=== PATIENT | female | born 1995 | race Caucasian/White ===

== ENCOUNTER 2017-07-17 22:56 | Emergency (ER) | payer SELFPAY ==
--- NOTE | ~2017-07-17 | ER ---
PATIENT'S NAME: CATHY MILLER [facility] AGE: 22 Y [address] ROOM: [place] [address] LOCATION: ED ADMIT DATE: 07/17/2017 ER/Outpatient Report DISCHARGE DATE: 07/17/2017 FAMILY PHYSICIAN: PHYSICIAN, NO ATTENDING PHYSICIAN: Kemar Rico Time of Arrival: 2258 hours. Time of Exam: 2303 hours. CHIEF COMPLAINT: Headache. HISTORY OF PRESENT ILLNESS: The patient states she has a headache behind her eyes and her posterior scalp area. This is similar to headaches that she has had in the past. The headache began 24 hours ago, has not improved with rest. She has been nauseated, has not vomited. Has had some photophobia. ALLERGIES: SHE HAS NO KNOWN ALLERGIES. CURRENT MEDICATIONS: No current medications. PAST MEDICAL HISTORY: Migraine headaches. PAST SURGICAL HISTORY: Appendectomy. SOCIAL HISTORY: She smokes 3/4 of a pack per day. Denies use of drugs and alcohol. REVIEW OF SYSTEMS: Negative other than those mentioned in the HPI. PHYSICAL EXAMINATION: VITAL SIGNS: She weighs 56.3 kg. Blood pressure is 120/68, pulse of 91, respirations 16, temperature of 98.3 tympanic, and O2 saturation was 97% on room air. Cyndi Coma Scale is 15. GENERAL: She is awake, alert, and oriented x4. SKIN: [place], warm, and dry. RESPIRATIONS: Even and nonlabored. HEENT: Pupils are equal and reactive to light. Extraocular movements are intact. PATIENT'S NAME: CATHY MILLER [facility] AGE: 22 Y [address] ROOM: [place] [address] LOCATION: [facility] ADMIT DATE: 07/17/2017 ER/Outpatient Report DISCHARGE DATE: 07/17/2017 FAMILY PHYSICIAN: PHYSICIAN, NO ATTENDING PHYSICIAN: Kemar Rico LUNGS: Lung sounds are clear throughout. HEART: Regular rate and rhythm. EXTREMITIES: She moves all extremities strongly and equally. EMERGENCY ROOM COURSE: She was given Toradol 60 mg IM and Phenergan 25 mg IM. IMPRESSION: Headache. PLAN: Home, rest, fluids. Follow up with her primary provider if symptoms persist or worsen. A note was written for work. She verbalizes understanding. TONYA HAN APRN FOR [facility] LARA/patrick /[id number] d: 07/18/[id number] t: 07/18/17 1811, OUTPATIENT REPORT
== END 2017-07-17 23:20 | disposition disaster alternative care site (69) ==
LOC: GMED 22:56
DX: R51 Headache (principal); F17.210 Nicotine dependence, cigarettes, uncomplicated; Z90.49 Acquired absence of other specified parts of digestive tract
CPT/HCPCS: J1885; J2550